=== PATIENT | male | born 1965 | race Caucasian/White ===

== ENCOUNTER → 2016-11-21 | Outpatient (CLI) | payer MEDICARE, MEDICAID, OTHER ==
[~2016-11-21] MED LIST: ASPI81TA85 PO; ATOR1TAB18 PO; CARA1TAB2 PO; CARV12.5 PO; CLOP75TA2 PO; HYDR-3713 PO; ISOS20TA PO; MAGN400T5 PO; NITR4TASL SL; PANTOPRAZOLE PO; TRAM50TA2 PO
[2016-11-21 08:16] LABS: MEAN CORPUSCULAR HGB CONC 33.7 g/dl (32.0-36.5); MEAN CORPUSCULAR VOLUME 92.1 fl (80.0-96.0); RED CELL DISTRIBUTION WIDTH 13.2 % (11.5-14.5); WHITE BLOOD COUNT 7.2 K/mm3 (4.0-10.0)
[2016-11-21 08:20] LABS: ALBUMIN 3.5 GM/DL (3.2-5.2); ALBUMIN/GLOBULIN RATIO 1.35 (1.00-1.93); ALKALINE PHOSPHATASE 58 U/L (45-117); ALT/SGPT 27 U/L (12-78); ANION GAP 5 MEQ/L (8-16); AST/SGOT 16 U/L (15-37); BILIRUBIN,TOTAL 0.7 MG/DL (0.2-1.0); BLOOD UREA NITROGEN 13 MG/DL (7-18); CALCIUM LEVEL 8.6 MG/DL (8.5-10.1); CARBON DIOXIDE LEVEL 30 MEQ/L (21-32); CHLORIDE LEVEL 109 MEQ/L (98-107); CHOLESTEROL LEVEL 159 MG/DL (<200); CREATININE FOR GFR 1.06 MG/DL (0.70-1.30); GLOMERULAR FILTRATION RATE > 60.0 (>56); GLUCOSE, FASTING 104 MG/DL (70-105); MAGNESIUM LEVEL 2.1 MG/DL (1.8-2.4); POTASSIUM SERUM 4.3 MEQ/L (3.5-5.1); SODIUM LEVEL 144 MEQ/L (136-145); TOTAL PROTEIN 6.1 GM/DL (6.4-8.2); TRIGLYCERIDES LEVEL 179 MG/DL (<150)
== END ==
LOC: M LAB 07:30
PROVIDERS: ATTEND Physician Assistant
DX: I25.10 Atherosclerotic heart disease of native coronary artery without angina pectoris (principal); E78.00 Pure hypercholesterolemia, unspecified; I25.5 Ischemic cardiomyopathy

== ENCOUNTER → 2017-01-17 | Outpatient (REF) ==
--- NOTE | 2017-01-17 10:53 | REP ---
PA and lateral chest: Comparisons are the PA and lateral chest is 02/19/[address] of 06/24/2013. There is a stable right upper lobe lung nodule which on CT is a calcified granuloma. There are no infiltrates or effusions. There are no masses. Lung townsend otherwise clear and unchanged. Cardiac size is normal. There is a single lead pacemaker, unchanged. The baryr, mediastinum, and bony thorax are unchanged. On the comparison CT there are scattered bulla, particularly in the upper lobes. Impression: No acute cardiopulmonary findings. There are findings compatible with bullous emphysema. There is a stable calcified granuloma the right upper lobe. There is a pacemaker. Signed by De Gordon MD 01/17/2017 10:44 A
== END ==
LOC: M SMT 09:56
PROVIDERS: ATTEND Internal Medicine
DX: Z02.71 Encounter for disability determination (principal); R91.8 Other nonspecific abnormal finding of lung field; Z95.0 Presence of cardiac pacemaker

== ENCOUNTER → 2017-02-09 | Outpatient (REF) | payer MEDICARE, MEDICAID, OTHER | LOC: M LAB REF 12:51 | PROVIDERS: ATTEND Internal Medicine | DX: Z84.89 Family history of other specified conditions (principal); Z79.899 Other long term (current) drug therapy ==

== ENCOUNTER 2017-07-30 21:22 | Emergency (ER) | payer MEDICARE, OTHER, MEDICAID ==
[~2017-07-30] VITALS: Ht 180.3 cm; Wt 95.5 kg
[2017-07-30 21:22] VITALS: BP 125/79
[~2017-07-30 21:22] MED LIST changes: -ATOR1TAB18 PO; +ATOR80TA59 PO; -CARA1TAB2 PO; +CARA1TAB6 PO
[2017-07-30] MEDS ORDERED: ZANA4TAB PO (21:31)
[2017-07-30] MEDS ORDERED: MONT10TA2 PO (21:31)
[2017-07-30] MEDS ORDERED: ALBUTEROL SULFATE 2.5 MG/0.5 ML INH NEB SOLN NEB ONE (22:15)
[2017-07-31] MEDS ORDERED: VENTAER INH (00:12)
[2017-07-31] MEDS ORDERED: ZITHTAB PO (00:12)
--- NOTE | 2017-07-31 07:42 | REP ---
PA and lateral chest: Comparison is 10/21/2012. There are no acute infiltrates or effusions. There are no masses. There is a stable right upper lobe ground lung nodule, unchanged, compatible with granuloma. The cardiac size is normal. There is a single lead pacemaker, unchanged. The barry, mediastinum, and bony thorax are unchanged. Impression: There are no acute cardiopulmonary findings. No Signed by De Gordon MD 07/31/2017 07:34 A
== END 2017-07-31 00:23 | disposition home or self-care (01) ==
LOC: M ED 21:22
DX: J20.9 Acute bronchitis, unspecified (principal); Z72.0 Tobacco use; I25.2 Old myocardial infarction; I10 Essential (primary) hypertension

== ENCOUNTER 2017-12-22 23:02 | Inpatient (IN) | payer OTHER, MEDICAID, MEDICARE ==
[2017-12-22] MEDS: NS 1,000 ML IV (23:42)
[2017-12-23 00:25] LABS: KETONE, URINE AUTO RFX NEGATIVE (NEGATIVE); LEUKOCYTE ESTERASE UR AUTO RFX NEGATIVE (NEGATIVE); NITRITE, URINE AUTO RFX NEGATIVE (NEGATIVE); RBC, URINE AUTO RFX 1 /HPF (0-3); SPECIFIC GRAVITY UR AUTO RFX 1.003 (1.002-1.035); SQUAM EPITHELIAL CELL UR AURFX 0 /HPF (0-6); WBC, URINE AUTO RFX 1 /HPF (0-3)
[2017-12-23 00:26] LABS: BASO # 0.1 10^3/uL (0.0-0.2); BASO % 0.6 % (0.0-1.0); EOS # 0.3 10^3/uL (0.0-0.50); EOS % 3.3 % (0.0-3.0); HEMATOCRIT 41.2 % (42.0-52.0); HEMOGLOBIN 14.3 g/dl (14.0-18.0); IMMATURE GRANULOCYTE % 0.3 % (0-3.0); LYMPH # 3.2 10^3/uL (1.5-4.5); LYMPH % 33.8 % (24.0-44.0); MEAN CORPUSCULAR HEMOGLOBIN 30.8 pg (27.0-33.0); MEAN CORPUSCULAR HGB CONC 34.7 g/dl (32.0-36.5); MEAN CORPUSCULAR VOLUME 88.6 fl (80.0-96.0); MONO % 9.9 % (0.0-5.0); NEUTROPHILS % 52.1 % (36.0-66.0); PLATELET COUNT, AUTOMATED 217 10^3/uL (150-450); RED BLOOD COUNT 4.65 10^6/uL (4.30-6.10); RED CELL DISTRIBUTION WIDTH 12.7 % (11.5-14.5); WHITE BLOOD COUNT 9.6 10^3/uL (4.0-10.0)
[2017-12-23 00:41] LABS: LACTIC ACID SEPSIS PROTOCOL 1.8 MMOL/L (0.4-2.0)
[2017-12-23 00:44] LABS: ALT/SGPT 34 U/L (12-78); ANION GAP 7 MEQ/L (8-16); AST/SGOT 19 U/L (7-37); BLOOD UREA NITROGEN 14 MG/DL (7-18); CALCIUM LEVEL 8.8 MG/DL (8.5-10.1); CARBON DIOXIDE LEVEL 26 MEQ/L (21-32); CHLORIDE LEVEL 110 MEQ/L (98-107); CPK CREATINE PHOSPHOKINASE 94 U/L (39-308); CREATININE FOR GFR 0.99 MG/DL (0.70-1.30); GLOMERULAR FILTRATION RATE > 60.0 (>56); GLUCOSE, FASTING 100 MG/DL (70-100); POTASSIUM SERUM 3.8 MEQ/L (3.5-5.1); SODIUM LEVEL 143 MEQ/L (136-145)
[2017-12-23 00:45] LABS: ACETAMINOPHEN LEVEL < 2.0 UG/ML (10.0-30.0); ALBUMIN 3.9 GM/DL (3.2-5.2); ALBUMIN/GLOBULIN RATIO 1.34 (1.00-1.93); ALKALINE PHOSPHATASE 50 U/L (45-117); BILIRUBIN,DIRECT 0.2 MG/DL (0.0-0.2); BILIRUBIN,TOTAL 0.7 MG/DL (0.2-1.0); ETHYL ALCOHOL (ETHANOL) < 0.003 % (0.000-0.010); SALICYLATE LEVEL < 1.7 MG/DL (5.0-30.0); TOTAL PROTEIN 6.8 GM/DL (6.4-8.2); TROPONIN I < 0.02 NG/ML (< 0.10)
[2017-12-23 01:01] LABS: CK-MB VALUE MASS 1.3 NG/ML (<3.6); MB/CK RELATIVE INDEX 1.38 (< OR =4)
[2017-12-23 01:40] LABS: AMPHETAMINES LEVEL URINE NEGATIVE (NEGATIVE); BARBITURATES URINE NEGATIVE (NEGATIVE); BENZODIAZEPINES URINE NEGATIVE (NEGATIVE); CANNABINOIDS URINE NEGATIVE (NEGATIVE); COCAINE METABOLITE URINE NEGATIVE (NEGATIVE); METHADONE URINE NEGATIVE (NEGATIVE); OPIATES URINE NEGATIVE (NEGATIVE); PHENCYCLIDINE URINE NEGATIVE (NEGATIVE)
[2017-12-23 02:36] LABS: AMPHETAMINES LEVEL URINE NEGATIVE (NEGATIVE); BARBITURATES URINE NEGATIVE (NEGATIVE); BENZODIAZEPINES URINE NEGATIVE (NEGATIVE); CANNABINOIDS URINE NEGATIVE (NEGATIVE); COCAINE METABOLITE URINE NEGATIVE (NEGATIVE); METHADONE URINE NEGATIVE (NEGATIVE); OPIATES URINE NEGATIVE (NEGATIVE); PHENCYCLIDINE URINE NEGATIVE (NEGATIVE)
[2017-12-23] MEDS ORDERED: ALBUTEROL 90 MCG/ACT 8GM HFA INHALER INH (09:00)
[2017-12-23] MEDS: ENOXAPARIN 40 MG/0.4 ML SYRINGE (J1650) SC (11:03)
[2017-12-23] MEDS: ATORVASTATIN 20 MG TAB PO (11:03)
[2017-12-23] MEDS: ISOSORBIDE MON. (IMDUR) 30 MG XR TAB PO (11:05)
[2017-12-23] MEDS: CLOPIDOGREL 75 MG TAB PO (11:05)
[2017-12-23] MEDS: MAGNESIUM OXIDE 400 MG TAB (MAG-OX) PO (11:05)
[2017-12-23] MEDS: ASPIRIN 81 MG ENTERIC TAB PO (11:05)
[2017-12-23] MEDS: PANTOPRAZOLE 40MG TAB (PROTONIX) PO ×2 (11:07→20:06)
[2017-12-23] MEDS: CARVedilol 12.5 MG TAB PO ×2 (11:07→20:06)
[2017-12-24] MEDS: CLOPIDOGREL 75 MG TAB PO (08:01)
[2017-12-24] MEDS: ATORVASTATIN 20 MG TAB PO (08:01)
[2017-12-24] MEDS: ISOSORBIDE MON. (IMDUR) 30 MG XR TAB PO (08:01)
[2017-12-24] MEDS: ENOXAPARIN 40 MG/0.4 ML SYRINGE (J1650) SC (08:02)
[2017-12-24] MEDS: CARVedilol 12.5 MG TAB PO ×2 (08:02→21:04)
[2017-12-24] MEDS: ASPIRIN 81 MG ENTERIC TAB PO (08:02)
[2017-12-24] MEDS: PANTOPRAZOLE 40MG TAB (PROTONIX) PO ×2 (08:02→21:03)
[2017-12-24] MEDS: MAGNESIUM OXIDE 400 MG TAB (MAG-OX) PO (08:02)
[2017-12-24] MEDS: ACETAMINOPHEN TAB 650MG DOSE (2X325MG) PO (21:03)
[2017-12-25] MEDS: ATORVASTATIN 20 MG TAB PO (07:54)
[2017-12-25] MEDS: CLOPIDOGREL 75 MG TAB PO (07:55)
[2017-12-25] MEDS: MAGNESIUM OXIDE 400 MG TAB (MAG-OX) PO (07:55)
[2017-12-25] MEDS: ASPIRIN 81 MG ENTERIC TAB PO (07:55)
[2017-12-25] MEDS: PANTOPRAZOLE 40MG TAB (PROTONIX) PO (07:55)
[2017-12-25] MEDS: CARVedilol 12.5 MG TAB PO (07:55)
[2017-12-25] MEDS: ISOSORBIDE MON. (IMDUR) 30 MG XR TAB PO (07:55)
[2017-12-25] MEDS: ENOXAPARIN 40 MG/0.4 ML SYRINGE (J1650) SC (07:56)
== END 2017-12-25 14:10 | DRG 204 ==
LOC: M ED 23:02 → M ED INP 23:03 → M ICU 12-23 05:33 → M PCU 12-23 20:57
DX: R55 Syncope and collapse (principal); I25.10 Atherosclerotic heart disease of native coronary artery without angina pectoris; I10 Essential (primary) hypertension; E78.5 Hyperlipidemia, unspecified; G47.33 Obstructive sleep apnea (adult) (pediatric); J44.9 Chronic obstructive pulmonary disease, unspecified; K21.9 Gastro-esophageal reflux disease without esophagitis; F17.210 Nicotine dependence, cigarettes, uncomplicated; Z98.1 Arthrodesis status; Z95.810 Presence of automatic (implantable) cardiac defibrillator; Z95.5 Presence of coronary angioplasty implant and graft; Z79.899 Other long term (current) drug therapy

== ENCOUNTER → 2019-04-20 | Outpatient (CLI) | payer MEDICARE, MEDICAID ==
[~2019-04-20] MED LIST changes: +ISOS30TA4 PO; +MONT10TA2 PO; +PANT40TA3 PO; +VENTAER INH; +ZANA4TAB PO; +ZITHTAB PO
[2019-04-20 17:59] LABS: BASO % 0.6 % (0.0-1.0); EOS # 0.2 10^3/uL (0.0-0.50); EOS % 2.6 % (0.0-3.0); HEMATOCRIT 43.2 % (42.0-52.0); HEMOGLOBIN 14.4 g/dl (13.5-17.5); LYMPH # 2.6 10^3/uL (1.5-4.5); LYMPH % 36.2 % (24.0-44.0); MEAN CORPUSCULAR HEMOGLOBIN 32.1 pg (27.0-33.0); MEAN CORPUSCULAR HGB CONC 33.3 g/dl (32.0-36.5); MEAN CORPUSCULAR VOLUME 96.4 fl (80.0-96.0); MONO # 0.8 10^3/uL (0.0-0.8); MONO % 10.4 % (0.0-5.0); NEUTROPHILS # 3.6 10^3/uL (1.8-7.7); NEUTROPHILS % 50.1 % (36.0-66.0); PLATELET COUNT, AUTOMATED 250 10^3/uL (150-450); RED BLOOD COUNT 4.48 10^6/uL (4.30-6.10); WHITE BLOOD COUNT 7.2 10^3/uL (4.0-10.0)
[2019-04-20 19:38] LABS: ALBUMIN 3.9 GM/DL (3.2-5.2); ALT/SGPT 27 U/L (12-78); BILIRUBIN,TOTAL 0.9 MG/DL (0.2-1.0); BLOOD UREA NITROGEN 19 MG/DL (7-18); CALCIUM LEVEL 8.6 MG/DL (8.5-10.1); CARBON DIOXIDE LEVEL 28 MEQ/L (21-32); CHLORIDE LEVEL 108 MEQ/L (98-107); CREATININE FOR GFR 1.12 MG/DL (0.70-1.30); GLOMERULAR FILTRATION RATE > 60.0 (>56); GLUCOSE, FASTING 89 MG/DL (70-100); POTASSIUM SERUM 4.3 MEQ/L (3.5-5.1); SODIUM LEVEL 142 MEQ/L (136-145); TOTAL PROTEIN 6.8 GM/DL (6.4-8.2)
--- NOTE | 2019-04-21 10:07 | REP ---
ABDOMINAL SERIES: Supine and erect views of the abdomen and pelvis demonstrates no evidence of free intraperitoneal air. I do not see evidence of small bowel obstruction. No significantly dilated small bowel loops are seen. There is a moderate to large amount of fecal material throughout the colon. Inferior aspect of the pelvis is not visualized. No definite abnormal calcifications are seen in the abdomen. There are mild degenerative changes of the spine. An accompanying view of the chest demonstrates a nodule in the right upper lobe peripherally, which is essentially stable compared to a prior chest radiograph 04/05/2016 from [facility]. There is no acute infiltrate in either lung. The heart is normal in size. There is a left single-lead pacemaker again noted. IMPRESSION: Moderate to large amount of fecal material through out the colon. No evidence of small bowel obstruction. No acute infiltrate in either lung. Electronically Signed by De Tee MD 04/21/2019 11:29 P
== END ==
LOC: M WUC 10:48
PROVIDERS: ATTEND Physician Assistant
DX: R10.31 Right lower quadrant pain (principal)

== ENCOUNTER → 2019-04-22 | Outpatient (CLI) | payer MEDICARE, MEDICAID ==
[~2019-04-22] MED LIST changes: +GASTROGRAFIN SOLUTION 30ML (Q9963) As Ordered ONE; +ISOVUE-370 76% 100ML VIAL (Q9967) As Ordered ONE
--- NOTE | 2019-04-22 16:06 | REP ---
CT of the abdomen and pelvis with IV contrast and with bowel contrast: Comparison is 04/09/2009. The visualized lung townsend are unremarkable. The hepatic parenchyma is homogeneous. The gallbladder, pancreas and spleen are normal size and unremarkable. There is a small hiatal hernia. The adrenals, kidneys and abdominal aorta are unremarkable. The bowel and mesentery are unremarkable. Pelvis: The appendix is unremarkable. The terminal ileum is unremarkable. The bladder is unremarkable. There is no adenopathy or ascites. The pelvic bowel loops are unremarkable. There is degenerative disc disease in the lumbar spine L5 S1. Impression: Essentially negative CT study of the abdomen and pelvis. L5 S1 degenerative disc disease is identified. Electronically Signed by De Gordon MD 04/22/2019 03:57 P
== END ==
LOC: M RAD 13:40
PROVIDERS: ATTEND Physician Assistant
DX: K44.9 Diaphragmatic hernia without obstruction or gangrene (principal); M51.36 Other intervertebral disc degeneration, lumbar region; R10.31 Right lower quadrant pain
CPT/HCPCS: 74177; Q9963; Q9967

== ENCOUNTER → 2019-05-31 | Outpatient (CLI) | payer MEDICARE, MEDICAID ==
[~2019-05-31] MED LIST changes: -GASTROGRAFIN SOLUTION 30ML (Q9963) As Ordered ONE; -ISOVUE-370 76% 100ML VIAL (Q9967) As Ordered ONE
[2019-05-31 16:35] LABS: HEMOGLOBIN 13.6 g/dl (13.5-17.5); MEAN CORPUSCULAR HEMOGLOBIN 30.3 pg (27.0-33.0); MEAN CORPUSCULAR HGB CONC 33.2 g/dl (32.0-36.5); MEAN CORPUSCULAR VOLUME 91.3 fl (80.0-96.0); PLATELET COUNT, AUTOMATED 240 10^3/uL (150-450); RED BLOOD COUNT 4.49 10^6/uL (4.30-6.10); WHITE BLOOD COUNT 6.9 10^3/uL (4.0-10.0)
[2019-05-31 16:46] LABS: ALBUMIN 3.4 GM/DL (3.2-5.2); ALT/SGPT 29 U/L (12-78); BILIRUBIN,TOTAL 0.9 MG/DL (0.2-1.0); BLOOD UREA NITROGEN 12 MG/DL (7-18); CALCIUM LEVEL 8.4 MG/DL (8.5-10.1); CARBON DIOXIDE LEVEL 26 MEQ/L (21-32); CHLORIDE LEVEL 110 MEQ/L (98-107); CHOLESTEROL LEVEL 134 MG/DL (<200); CHOLESTEROL RISK RATIO 3.435 (<5); CREATININE FOR GFR 0.94 MG/DL (0.70-1.30); GLOMERULAR FILTRATION RATE > 60.0 (>56); GLUCOSE, FASTING 114 MG/DL (70-100); HDL CHOLESTEROL 39 MG/DL (>40); LDL CHOLESTEROL 76 MG/DL (<100); MAGNESIUM LEVEL 1.8 MG/DL (1.8-2.4); NON-HDL-C 95 MG/DL; SODIUM LEVEL 141 MEQ/L (136-145); TOTAL PROTEIN 5.9 GM/DL (6.4-8.2); TRIGLYCERIDES LEVEL 95 MG/DL (<150)
== END ==
LOC: M WUC 10:27
PROVIDERS: ATTEND Physician Assistant
DX: I25.10 Atherosclerotic heart disease of native coronary artery without angina pectoris (principal); E78.00 Pure hypercholesterolemia, unspecified; I25.5 Ischemic cardiomyopathy

== ENCOUNTER → 2019-10-07 | Outpatient (CLI) | payer MEDICARE, MEDICAID ==
--- NOTE | 2019-10-07 13:11 | REP ---
Left shoulder: Three views. History: Pain. Findings: The left glenohumeral and acromioclavicular joints are normally aligned. A transvenous pacemaker is noted in place on the left. There is mild AC joint hypertrophy and spur formation. Periarticular soft tissues are unremarkable. Impression: Mild AC joint osteoarthritic spurring. Pacemaker. Otherwise negative. Electronically Signed by Chaitanya Sow MD 10/07/2019 01:25 P
== END ==
LOC: M WUC 11:19
PROVIDERS: ATTEND Internal Medicine
DX: M19.012 Primary osteoarthritis, left shoulder (principal); M25.512 Pain in left shoulder; Z95.0 Presence of cardiac pacemaker

== ENCOUNTER 2019-10-28 11:31 | Emergency (ER) | payer MEDICARE, MEDICAID ==
[~2019-10-28] VITALS: Ht 180.3 cm; Wt 96.2 kg
[2019-10-28 11:32] VITALS: BP 134/80
== END 2019-10-28 13:25 | disposition left against medical advice (07) ==
LOC: M ED 11:31
DX: Z53.21 Procedure and treatment not carried out due to patient leaving prior to being seen by health care provider (principal)

== ENCOUNTER → 2019-12-04 | Outpatient (CLI) | payer MEDICARE, MEDICAID, OTHER ==
[~2019-12-04] MED LIST changes: -MONT10TA2 PO; +MONT10TA4 PO
--- NOTE | 2019-12-09 13:20 | SLEEPCENT ---
DATE OF STUDY: 12/04/2019 ORDERING PROVIDER: CECI Meadows Nocturnal polysomnography was performed for evaluation of sleep physiology in this patient with a history of obstructive sleep apnea syndrome in the past who is experiencing excessive daytime somnolence and nonrestorative sleep. 8 hours and 6 minutes of data were reviewed. There were 449 minutes of sleep identified. Sleep latency was mildly prolonged at 15.5 minutes. Rapid eye movement (REM) latency was normal at 57 minutes. Sleep architecture was good with five REM cycles. Overall sleep efficiency was 93%. The patient's electrocardiogram showed a sinus rhythm with an average heart rate of 62 beats per minute. Electroencephalogram (EEG) showed normal waveforms for awake and sleep. There were 130 respiratory events identified of 10 seconds in duration or greater for an apnea-hypopnea index of 17.4. The events were obstructive, not exclusive to sleep stage nor body posture. Arousals from respiratory events occurred 16.4 times per hour, and oxygen desaturations were seen into the low 80s. Remaining measures of sleep physiology were normal. IMPRESSION: Obstructive sleep apnea syndrome (G47.33). Apnea-hypopnea index 17.4. RECOMMENDATION: The patient should be encouraged to return to the sleep disorder center for pressure therapy. In the interim, alcohol and sedative avoidance should be practiced and caution exercised during the operation of motor vehicles.
== END ==
LOC: M SLEEP 19:37
PROVIDERS: ATTEND Nurse Practitioner Adult Health
DX: G47.33 Obstructive sleep apnea (adult) (pediatric) (principal)

== ENCOUNTER → 2019-12-22 | Outpatient (CLI) | payer MEDICARE, MEDICAID, OTHER ==
--- NOTE | 2019-12-24 22:22 | SLEEPCENT ---
DATE OF PROCEDURE: 12/22/2019 Ordered by: CECI Meadows Nocturnal polysomnography was performed for the titration of pressure therapy in this patient with obstructive sleep apnea syndrome. Apnea-hypopnea index 17.4. For testing, the patient was fit with a [employer] full-face mask of medium size, 4 cm of water pressure were applied to the circuit and the lights were extinguished. 7 hours and 51 minutes of data were reviewed. There were 281 minutes of sleep identified. Sleep latency was prolonged at 32.5 minutes. REM latency was short at 38.5 minutes. Sleep architecture improved with pressure therapy. Overall sleep efficiency was 60.5%. The patient's electrocardiogram showed small complexes in a sinus rhythm with occasional PVCs. Average heart rate 75 beats per minute. EEG showed normal waveforms for awake and sleep. Respiratory events were well palliated with C-PAP at a pressure of +10. IMPRESSION Obstructive sleep apnea syndrome (G47.33) RECOMMENDATIONS Nightly use of pressure therapy 10 cm of water.
== END ==
LOC: M SLEEP 20:00
PROVIDERS: ATTEND Nurse Practitioner Adult Health
DX: G47.33 Obstructive sleep apnea (adult) (pediatric) (principal)

== ENCOUNTER → 2021-01-22 | Outpatient (CLI) | payer MEDICARE, MEDICAID ==
[~2021-01-22] MED LIST changes: -ASPI81TA85 PO; +ASPI81TA86 PO; +ISOS1TAB35 PO; -ISOS30TA4 PO; +MONT10TA10 PO; -MONT10TA4 PO; +PANT40TA29 PO; -PANT40TA3 PO
--- NOTE | 2021-01-22 15:45 | REP ---
INDICATION: OCCLUSION/STENOSIS COMPARISON: 12/23/2017 TECHNIQUE: Tee scale and color Doppler evaluation using linear high frequency transducer Findings: FINDINGS: Two-dimensional tee scale and color images demonstrate normal arterial lumen with laminar flow and no appreciable narrowing. Bilateral age-related intimal thickening noted. Color Doppler interrogation demonstrates normal arterial wave patterns and velocities with no significant spectral broadening. Normal flow direction is appreciated in the bilateral vertebral arteries. ICA peak systolic velocity: Right 54.4 cm/s; Left 55.8 cm/s ICA diastolic velocity: Right 28.8 cm/s; Left 27.3 cm/s ECA peak systolic velocity: Right 60.0 cm/s; Left 78.6 cm/s CCA peak systolic velocity: Right 98.3 cm/s; Left 76.9 cm/s ICA/CCA ratio: Right 0.55 cm/s; Left 0.73 cm/s IMPRESSION: No hemodynamically significant areas of narrowing or stenosis appreciated. Based on set standards narrowing falls within the less than 50% range. <Electronically signed by Brent Carlson > 01/22/21 [id number]
== END ==
LOC: M RAD 14:26
PROVIDERS: ATTEND Physician Assistant
DX: I65.23 Occlusion and stenosis of bilateral carotid arteries (principal)

== ENCOUNTER → 2021-03-27 | Outpatient (CLI) | payer MEDICARE, MEDICAID ==
--- NOTE | 2021-03-27 17:05 | REP ---
INDICATION: PAIN IN RIGHT FOOT COMPARISON: None. TECHNIQUE: AP, lateral, bilateral oblique views right foot. FINDINGS: The osseous structures and joint spaces are intact and normal. There is no evidence for acute fracture or dislocation. Surrounding soft tissues are unremarkable. No subcutaneous emphysema or radiodense foreign body. IMPRESSION: Age-appropriate right foot radiographs. No acute fracture or dislocation. <Electronically signed by Brent Carlson > 03/27/21 [id number]
== END ==
LOC: M RAD 16:31
PROVIDERS: ATTEND Physician Assistant
DX: M79.671 Pain in right foot (principal)

== ENCOUNTER 2021-04-02 14:17 | Emergency (ER) | payer MEDICARE, MEDICAID ==
[~2021-04-02] VITALS: Ht 180.3 cm; Wt 97.7 kg
[2021-04-02] MEDS ORDERED: FARX1TAB3 (14:35)
[2021-04-02] MEDS ORDERED: EZET10TA21 (14:35)
[2021-04-02] MEDS ORDERED: ENTR1TAB4 (14:35)
[2021-04-02] MEDS ORDERED: ACETAMINOPHEN 500 MG TAB PO ONE (15:25)
[2021-04-02 15:44] VITALS: BP 96/70
== END 2021-04-02 15:47 | disposition home or self-care (01) ==
LOC: M ED 14:17
DX: M72.2 Plantar fascial fibromatosis (principal); I10 Essential (primary) hypertension; E11.9 Type 2 diabetes mellitus without complications; I25.2 Old myocardial infarction; E78.5 Hyperlipidemia, unspecified; K21.9 Gastro-esophageal reflux disease without esophagitis; M81.0 Age-related osteoporosis without current pathological fracture; Z95.0 Presence of cardiac pacemaker; Z95.5 Presence of coronary angioplasty implant and graft; Z79.899 Other long term (current) drug therapy; Z79.82 Long term (current) use of aspirin; F17.210 Nicotine dependence, cigarettes, uncomplicated

== ENCOUNTER → 2021-05-07 | Outpatient (CLI) | payer MEDICARE, MEDICAID ==
[~2021-05-07] MED LIST changes: +ENTR1TAB4; +EZET10TA21; +FARX1TAB3
[2021-05-07 10:02] LABS: HEMATOCRIT 42.3 % (42.0-52.0); HEMOGLOBIN 13.9 g/dl (13.5-17.5)
[2021-05-07 10:31] LABS: BLOOD UREA NITROGEN 15 MG/DL (7-18); CALCIUM LEVEL 8.8 MG/DL (8.5-10.1); CARBON DIOXIDE LEVEL 28 MEQ/L (21-32); CHLORIDE LEVEL 110 MEQ/L (98-107); GLOMERULAR FILTRATION RATE > 60.0 (>56); GLUCOSE, FASTING 103 MG/DL (70-100); POTASSIUM SERUM 4.4 MEQ/L (3.5-5.1); SODIUM LEVEL 140 MEQ/L (136-145)
== END ==
LOC: M LAB 09:03
PROVIDERS: ATTEND Orthopaedic Surgery
DX: Z01.812 Encounter for preprocedural laboratory examination (principal); I25.5 Ischemic cardiomyopathy; Z79.899 Other long term (current) drug therapy; Z79.82 Long term (current) use of aspirin

== ENCOUNTER → 2021-05-07 | Outpatient (CLI) | payer MEDICARE, MEDICAID ==
[~2021-05-07] MED LIST changes: -MONT10TA10 PO; +MONT10TA97 PO
[2021-05-07 10:29] LABS: BLOOD UREA NITROGEN 15 MG/DL (7-18); CALCIUM LEVEL 8.6 MG/DL (8.5-10.1); CARBON DIOXIDE LEVEL 28 MEQ/L (21-32); CHLORIDE LEVEL 111 MEQ/L (98-107); GLOMERULAR FILTRATION RATE > 60.0 (>56); GLUCOSE, FASTING 96 MG/DL (70-100); POTASSIUM SERUM 4.5 MEQ/L (3.5-5.1); SODIUM LEVEL 141 MEQ/L (136-145)
== END ==
LOC: M LAB 08:59
PROVIDERS: ATTEND Physician Assistant
DX: I25.5 Ischemic cardiomyopathy (principal)

== ENCOUNTER → 2021-07-28 | Outpatient (CLI) | payer MEDICARE, MEDICAID ==
[~2021-07-28] MED LIST changes: +MONT10TA10 PO; -MONT10TA97 PO
== END ==
LOC: M LABSMTC 11:12
PROVIDERS: ATTEND Pediatrics
DX: Z20.822 Contact with and (suspected) exposure to COVID-19 (principal)
CPT/HCPCS: C9803; U0003

== ENCOUNTER 2021-08-02 09:35 | Outpatient (CLI) | payer MEDICARE, MEDICAID ==
[~2021-08-02] VITALS: Ht 180.3 cm; Wt 96.0 kg
[~2021-08-02 09:35] MED LIST changes: +ALBUTEROL 90 MCG/ACT 8GM HFA INHALER INH PRN; +ALBUTEROL SULFATE 2.5 MG/0.5 ML INH NEB SOLN INH PRN; +EPINEPHrine INJ 1 MG/ML 1ML AMP IM PRN; +NS 1,000 ML IV SCH; +diphenhydrAMINE 50MG/ML VIAL (J1200) IV PRN; +methylPREDNISolone 125MG 2ML VIAL IV PRN
[2021-08-02] MEDS ORDERED: ACETAMINOPHEN TAB 650MG DOSE (2X325MG) PO ONE (09:55)
[2021-08-02] MEDS ORDERED: diphenhydrAMINE 25MG CAP PO ONE (09:55)
[2021-08-02] MEDS ORDERED: BAMLANIVIMAB 700 MG, ETESEVIMAB 1,400 MG in NS 250 ML IV ONE (09:55)
[2021-08-02 11:03] VITALS: BP 99/60
[2021-08-02 11:33] VITALS: BP 102/61
[2021-08-02 12:03] VITALS: BP 96/62
[2021-08-02 13:03] VITALS: BP 98/62
== END 2021-08-02 13:03 | disposition home or self-care (01) ==
LOC: M OPCLI4PR 09:35
PROVIDERS: ATTEND Internal Medicine
DX: U07.1 COVID-19 (principal)

== ENCOUNTER → 2021-08-09 | Outpatient (REF) ==
[~2021-08-09] MED LIST changes: -ALBUTEROL 90 MCG/ACT 8GM HFA INHALER INH PRN; -ALBUTEROL SULFATE 2.5 MG/0.5 ML INH NEB SOLN INH PRN; -EPINEPHrine INJ 1 MG/ML 1ML AMP IM PRN; -NS 1,000 ML IV SCH; -diphenhydrAMINE 50MG/ML VIAL (J1200) IV PRN; -methylPREDNISolone 125MG 2ML VIAL IV PRN
--- NOTE | 2021-08-09 14:08 | REP ---
INDICATION: SOB. COMPARISON: Multiple the latest 04/09/2019 TECHNIQUE: PA and lateral FINDINGS: The cardiomediastinal silhouette is unchanged. The heart is not enlarged. AICD stable. The lung townsend are stable. No acute patchy parenchymal opacities or pleural effusions have developed. There is a well-known benign nodule in the right upper lobe status quo. There is no change in the osseous structures. IMPRESSION: There is no acute cardiopulmonary disease. <Electronically signed by Humble Hughes > 08/09/21 3024
== END ==
LOC: M PLAIMG 10:49
PROVIDERS: ATTEND Internal Medicine
DX: R06.02 Shortness of breath (principal)

== ENCOUNTER → 2022-04-08 | Outpatient (REF) | payer MEDICARE, MEDICAID ==
[~2022-04-08] MED LIST changes: -MONT10TA10 PO; +MONT10TA97 PO
[2022-04-08 16:40] LABS: CREATININE FOR GFR 1.37 MG/DL (0.70-1.30); GLOMERULAR FILTRATION RATE 56.6 (>56); POTASSIUM SERUM 3.9 MEQ/L (3.5-5.1)
== END ==
LOC: M LABWUC 15:36
PROVIDERS: ATTEND Physician Assistant
DX: I25.5 Ischemic cardiomyopathy (principal)

== ENCOUNTER → 2022-05-10 | Outpatient (CLI) | payer MEDICARE, MEDICAID | LOC: M RAD 15:55 → M LAB 15:55 | PROVIDERS: ATTEND Internal Medicine | DX: M54.50 Low back pain, unspecified (principal) ==

== ENCOUNTER 2022-06-30 16:41 | Emergency (ER) | payer MEDICARE, MEDICAID ==
[~2022-06-30] VITALS: Ht 180.3 cm; Wt 88.6 kg
[2022-06-30 17:12] LABS: BASO # 0.1 10^3/uL (0.0-0.2); BASO % 0.5 % (0.0-1.0); EOS # 0.5 10^3/uL (0.0-0.5); EOS % 4.8 % (0.0-3.0); HEMATOCRIT 38.4 % (42.0-52.0); HEMOGLOBIN 13.2 g/dl (13.5-17.5); LYMPH # 3.2 10^3/uL (1.5-5.0); LYMPH % 32.1 % (24.0-44.0); MEAN CORPUSCULAR HGB CONC 34.4 g/dl (32.0-36.5); MONO # 0.8 10^3/uL (0.0-0.8); NEUTROPHILS # 5.4 10^3/uL (1.5-8.5); NEUTROPHILS % 54.1 % (36.0-66.0); PLATELET COUNT, AUTOMATED 267 10^3/uL (150-450); RED BLOOD COUNT 4.13 10^6/uL (4.30-6.10); WHITE BLOOD COUNT 9.9 10^3/uL (4.0-10.0)
[2022-06-30 17:28] LABS: INR 0.94
[2022-06-30 17:29] LABS: PARTIAL THROMBOPLASTIN TIME 32.6 SECONDS (25.9-37.0)
[2022-06-30 18:07] LABS: MB/CK RELATIVE INDEX 1.12 (< OR =4)
[2022-06-30 18:12] LABS: ALBUMIN 3.8 GM/DL (3.2-5.2); BILIRUBIN,DIRECT 0.2 MG/DL (0.0-0.2); BILIRUBIN,TOTAL 0.7 MG/DL (0.2-1.0); CALCIUM LEVEL 9.1 MG/DL (8.5-10.1); CREATININE FOR GFR 1.36 MG/DL (0.70-1.30); FREE T4 1.08 NG/DL (0.76-1.46); GLOMERULAR FILTRATION RATE 57.1 (>56); POTASSIUM SERUM 3.6 MEQ/L (3.5-5.1); THYROID STIMULATING HORMONE 0.927 uIU/ML (0.358-3.740); TOTAL PROTEIN 6.6 GM/DL (6.4-8.2)
[2022-06-30] MEDS ORDERED: PRED20TA PO (18:44)
[2022-06-30] MEDS ORDERED: methylPREDNISolone 125MG 2ML VIAL IV ONE (18:45)
[2022-06-30 18:57] LABS: CK-MB VALUE MASS 1.1 NG/ML (<3.6); MB/CK RELATIVE INDEX 1.41 (< OR =4)
[2022-06-30 19:52] VITALS: BP 125/79
== END 2022-06-30 19:54 | disposition home or self-care (01) ==
LOC: M ED 16:41
DX: R07.89 Other chest pain (principal); E11.9 Type 2 diabetes mellitus without complications; I25.2 Old myocardial infarction; K21.9 Gastro-esophageal reflux disease without esophagitis
CPT/HCPCS: 71045; 80048; 80076; 82550; 82553; 83690; 83880; 84439; 84443; 84484; 85025; 85610; 85730; 87486; 87581; 87633; 87798; 93005; 93041; 94760; 96374; 99284; J2930

== ENCOUNTER → 2022-10-27 | Outpatient (REF) | payer MEDICARE, MEDICAID ==
[~2022-10-27] MED LIST changes: -ISOS20TA PO; +ISOS20TA53 PO; +METH-1164 PO; +PRED20TA PO
[2022-10-29 20:51] LABS: ANTINUCLEAR ANTIBODIES DIRECT Negative (Negative); CYCLIC CITRULLINATED PEPTIDE 1 units (0-19)
== END ==
LOC: M LAB REF 16:19
PROVIDERS: ATTEND Internal Medicine
DX: M25.50 Pain in unspecified joint (principal)

== ENCOUNTER → 2022-10-27 | Outpatient (CLI) | payer MEDICARE, MEDICAID | LOC: M WUC 15:06 | PROVIDERS: ATTEND Internal Medicine | DX: R91.1 Solitary pulmonary nodule (principal); Z95.0 Presence of cardiac pacemaker ==

== ENCOUNTER 2022-12-02 16:14 | Emergency (ER) | payer MEDICARE, MEDICAID ==
[~2022-12-02] VITALS: Ht 180.3 cm; Wt 97.3 kg
[~2022-12-02 16:14] MED LIST changes: -METH-1164 PO
[2022-12-02 18:50] LABS: BASO # 0.1 10^3/uL (0.0-0.2); BASO % 0.7 % (0.0-1.0); EOS # 0.3 10^3/uL (0.0-0.5); EOS % 3.3 % (0.0-3.0); HEMOGLOBIN 14.1 g/dl (13.5-17.5); LYMPH # 3.1 10^3/uL (1.5-5.0); LYMPH % 36.8 % (24.0-44.0); MEAN CORPUSCULAR HEMOGLOBIN 31.3 pg (27.0-33.0); MEAN CORPUSCULAR HGB CONC 33.6 g/dl (32.0-36.5); MEAN CORPUSCULAR VOLUME 93.1 fl (80.0-96.0); NEUTROPHILS # 3.9 10^3/uL (1.5-8.5); NEUTROPHILS % 46.8 % (36.0-66.0); PLATELET COUNT, AUTOMATED 223 10^3/uL (150-450); RED BLOOD COUNT 4.51 10^6/uL (4.30-6.10); WHITE BLOOD COUNT 8.3 10^3/uL (4.0-10.0)
[2022-12-02 18:55] LABS: AMPHETAMINES LEVEL URINE NEGATIVE (NEGATIVE); BARBITURATES URINE NEGATIVE (NEGATIVE); BENZODIAZEPINES URINE NEGATIVE (NEGATIVE); CANNABINOIDS URINE NEGATIVE (NEGATIVE); COCAINE METABOLITE URINE NEGATIVE (NEGATIVE); PHENCYCLIDINE URINE NEGATIVE (NEGATIVE)
[2022-12-02 18:56] LABS: METHADONE URINE NEGATIVE (NEGATIVE); OPIATES URINE NEGATIVE (NEGATIVE)
[2022-12-02 18:58] LABS: ETHYL ALCOHOL (ETHANOL) < 0.003 % (0.000-0.010)
[2022-12-02 18:59] LABS: BLOOD UREA NITROGEN 17 MG/DL (9-23); CALCIUM LEVEL 8.7 MG/DL (8.5-10.1); CARBON DIOXIDE LEVEL 27 MMOL/L (20-31); CHLORIDE LEVEL 106 MMOL/L (98-107); CK-MB VALUE MASS 1.6 NG/ML (<3.6); CREATININE FOR GFR 1.17 MG/DL (0.70-1.30); GLOMERULAR FILTRATION RATE > 60.0 (>56); GLUCOSE, FASTING 75 MG/DL (60-100); MAGNESIUM LEVEL 1.8 MG/DL (1.8-2.4); POTASSIUM SERUM 4.2 MMOL/L (3.5-5.1); SODIUM LEVEL 139 MMOL/L (136-145)
[2022-12-02 19:01] LABS: FREE T4 1.06 NG/DL (0.89-1.76)
[2022-12-02 19:02] LABS: THYROID STIMULATING HORMONE 1.464 uIU/ML (0.55-4.78)
[2022-12-02 19:04] LABS: CPK CREATINE PHOSPHOKINASE 91 U/L (46-171); MB/CK RELATIVE INDEX 1.75 (< OR =4)
[2022-12-02 19:04] LABS: RSV AMPLIFICATION NEGATIVE (NEGATIVE)
[2022-12-02 19:08] VITALS: BP 116/72
[2022-12-02] MEDS ORDERED: METHOCARBAMOL 1,000 MG/10 ML VIAL IV ONE (20:20)
[2022-12-02] MEDS ORDERED: KETOROLAC 30 MG/ML 1ML VIAL IV ONE (20:20)
[2022-12-02 21:27] LABS: BACTERIA, URINE AUTO NEGATIVE (NEGATIVE); RBC, URINE AUTO 0 /HPF (0-3); SQUAMOUS EPITHELIAL CELL UR AU 0 /HPF (0-6); WBC, URINE AUTO 0 /HPF (0-3)
[2022-12-02 21:28] LABS: APPEARANCE, URINE CLEAR (CLEAR)
[2022-12-02 21:29] LABS: COLOR, URINE YELLOW (YELLOW)
[2022-12-02 21:30] LABS: BILIRUBIN, URINE AUTO NEGATIVE (NEGATIVE); BLOOD, URINE BLOOD NEGATIVE (NEGATIVE); GLUCOSE, URINE (UA) AUTO 3+ mg/dL (NEGATIVE); KETONE, URINE AUTO NEGATIVE (NEGATIVE); LEUKOCYTE ESTERASE, URINE AUTO NEGATIVE (NEGATIVE); NITRITE, URINE AUTO NEGATIVE (NEGATIVE); PROTEIN, URINE AUTO NEGATIVE (NEGATIVE); UROBILINOGEN, URINE AUTO 0.2 mg/dL (0.0-2.0)
[2022-12-02] MEDS ORDERED: NORCO 5/325MG TABLET (HOME DOSE PACK) PO ONE (21:45)
[2022-12-02] MEDS ORDERED: METH-1164 PO (21:48)
== END 2022-12-02 22:06 | disposition home or self-care (01) ==
LOC: M ED 16:14
DX: I95.1 Orthostatic hypotension (principal); M54.9 Dorsalgia, unspecified; E11.9 Type 2 diabetes mellitus without complications; I10 Essential (primary) hypertension; I25.2 Old myocardial infarction; K21.9 Gastro-esophageal reflux disease without esophagitis; A69.20 Lyme disease, unspecified; Z95.5 Presence of coronary angioplasty implant and graft; F17.200 Nicotine dependence, unspecified, uncomplicated; Z79.82 Long term (current) use of aspirin; Z79.899 Other long term (current) drug therapy
CPT/HCPCS: 70450; 71045; 72110; 80048; 80307; 81001; 82077; 82550; 82553; 83735; 83880; 84439; 84443; 84484; 85025; 87631; 93005; 93041; 94760; 96374; 96375; 99285; J1885; J2800

== ENCOUNTER → 2023-02-28 | Outpatient (CLI) | payer MEDICARE, MEDICAID ==
[~2023-02-28] MED LIST changes: +METH-1164 PO
== END ==
LOC: M RAD 14:50
PROVIDERS: ATTEND Nurse Practitioner Adult Health
DX: Z12.2 Encounter for screening for malignant neoplasm of respiratory organs (principal); F17.218 Nicotine dependence, cigarettes, with other nicotine-induced disorders; J84.10 Pulmonary fibrosis, unspecified

== ENCOUNTER → 2024-01-15 | Outpatient (CLI) | payer MEDICARE, MEDICAID | LOC: M RAD 11:12 | PROVIDERS: ATTEND Physician Assistant | DX: I65.23 Occlusion and stenosis of bilateral carotid arteries (principal) ==

== ENCOUNTER → 2024-04-15 | Outpatient (CLI) | payer OTHER, MEDICAID | LOC: M RAD 14:33 | PROVIDERS: ATTEND Nurse Practitioner Adult Health | DX: Z12.2 Encounter for screening for malignant neoplasm of respiratory organs (principal); F17.218 Nicotine dependence, cigarettes, with other nicotine-induced disorders ==

== ENCOUNTER → 2024-07-18 | Outpatient (REF) | payer OTHER, MEDICAID | LOC: M LAB REF 11:58 | PROVIDERS: ATTEND Internal Medicine | DX: R53.83 Other fatigue (principal); Z11.59 Encounter for screening for other viral diseases ==

== ENCOUNTER → 2024-10-23 | Outpatient (CLI) | payer OTHER, MEDICAID ==
[~2024-10-23] MED LIST changes: -ISOS20TA53 PO; +ISOS20TA72 PO
== END ==
LOC: M RAD 13:51
PROVIDERS: ATTEND Nurse Practitioner Adult Health
DX: R91.8 Other nonspecific abnormal finding of lung field (principal); J44.9 Chronic obstructive pulmonary disease, unspecified; J43.9 Emphysema, unspecified; J47.9 Bronchiectasis, uncomplicated; I25.10 Atherosclerotic heart disease of native coronary artery without angina pectoris; Z95.0 Presence of cardiac pacemaker; R59.0 Localized enlarged lymph nodes

== ENCOUNTER → 2025-08-18 | Outpatient (REF) | payer MEDICARE, MEDICAID ==
[~2025-08-18] MED LIST changes: +ACET-683 PO; +ALBU10.7 INH; +ASPI81CH49 PO; +BENA25CA4 PO; +BENZ-18 PO; +ELIQ5TAB PO; +ENOX100I3 SC; +ENTR1TAB7 PO; +EPIN0.3I11 INJ; -EZET10TA21; +EZET10TA57 PO; +FARX1TAB3 PO; +FURO20TA2 PO; +GUAI400T41 PO; +GUAIDM5UD PO; +METO1TAB33 PO; +SPIR-10 PO
== END ==
LOC: M LAB REF 16:48
PROVIDERS: ATTEND Internal Medicine
DX: R05.9 Cough, unspecified (principal)

== ENCOUNTER → 2025-08-19 | Outpatient (CLI) | payer MEDICARE, MEDICAID | LOC: M WUC 11:16 | PROVIDERS: ATTEND Internal Medicine | DX: R05.9 Cough, unspecified (principal); R09.89 Other specified symptoms and signs involving the circulatory and respiratory systems; R91.1 Solitary pulmonary nodule; R06.02 Shortness of breath; J44.9 Chronic obstructive pulmonary disease, unspecified ==

== ENCOUNTER 2025-08-23 18:51 | Inpatient (IN) | payer MEDICARE, MEDICAID ==
[~2025-08-23] VITALS: Ht 180.3 cm; Wt 97.7 kg
[~2025-08-23 18:51] MED LIST changes: -ACET-683 PO; -ALBU10.7 INH; -ASPI81CH49 PO; -BENA25CA4 PO; -BENZ-18 PO; -ELIQ5TAB PO; -ENOX100I3 SC; -ENTR1TAB7 PO; -EPIN0.3I11 INJ; -FARX1TAB3 PO; -FURO20TA2 PO; -GUAI400T41 PO; -GUAIDM5UD PO; -METO1TAB33 PO; -SPIR-10 PO
[2025-08-23 19:22] LABS: BASO # 0.1 10^3/uL (0.0-0.2); BASO % 0.5 % (0.0-1.0); EOS # 0.3 10^3/uL (0.0-0.5); EOS % 3.3 % (0.0-3.0); LYMPH # 2.6 10^3/uL (1.5-5.0); LYMPH % 26.8 % (24.0-44.0); MONO # 1.0 10^3/uL (0.0-0.8); MONO % 10.6 % (2.0-8.0); NEUTROPHILS # 5.6 10^3/uL (1.5-8.5); NEUTROPHILS % 58.4 % (36.0-66.0); PLATELET COUNT, AUTOMATED 265 10^3/uL (150-450)
[2025-08-23 19:53] LABS: ALT/SGPT 30.0 U/L (7.0-40); AST/SGOT 21.0 U/L (<34); CALCIUM LEVEL 9.1 MG/DL (8.3-10.6); CARBON DIOXIDE LEVEL 26.0 MMOL/L (20-31); CHLORIDE LEVEL 108.0 MMOL/L (98-107); CREATININE FOR GFR 1.56 MG/DL (0.70-1.30); GLOMERULAR FILTRATION RATE 49.9 (>49); POTASSIUM SERUM 3.6 MMOL/L (3.5-5.1); SODIUM LEVEL 142.0 MMOL/L (136-145)
[2025-08-23 22:42] LABS: INR 0.85
[2025-08-23] MEDS ORDERED: ISOVUE-370 76% 100 ML VIAL As Ordered ONE (22:48)
[2025-08-23] MEDS ORDERED: ACETAMINOPHEN 325 MG TAB PO PRN (23:50)
[2025-08-24] MEDS ORDERED: ALBUTEROL 90 MCG/ACT 8 GM HFA INHALER INH PRN (01:20)
[2025-08-24 01:39] LABS: C REACTIVE PROTEIN QUANTITATIV 1.82 MG/DL (<1.0)
[2025-08-24] MEDS: COMBIVENT RESPIMAT 100-20 MCG INHALER 4 GM INH SCH (02:00)
[2025-08-24 02:30] VITALS: BP 137/66; TEMP 97.7; O2SAT 94
[2025-08-24] MEDS: ENOXAPARIN 100 MG/1 ML SYRINGE (J1650 PER 10MG) SC SCH (02:35)
[2025-08-24] MEDS ORDERED: ALBU10.7 INH (02:45)
[2025-08-24] MEDS ORDERED: PANT40TA29 PO (02:45)
[2025-08-24] MEDS ORDERED: METO1TAB33 PO (02:45)
[2025-08-24] MEDS ORDERED: FURO20TA2 PO (02:45)
[2025-08-24] MEDS ORDERED: GUAI400T41 PO (02:45)
[2025-08-24] MEDS ORDERED: ENTR1TAB7 PO (02:45)
[2025-08-24] MEDS ORDERED: BENZ-18 PO (02:45)
[2025-08-24] MEDS ORDERED: SPIR-10 PO (02:45)
[2025-08-24] MEDS ORDERED: ASPI81CH49 PO (02:45)
[2025-08-24] MEDS ORDERED: EPIN0.3I11 INJ (02:47)
[2025-08-24] MEDS ORDERED: ACET-683 PO (02:50)
[2025-08-24] MEDS ORDERED: BENA25CA4 PO (02:50)
[2025-08-24] MEDS ORDERED: HOME MED LIST COMPLETE! XX SCH (03:00)
[2025-08-24] MEDS ORDERED: FARX1TAB3 PO (03:52)
[2025-08-24 05:00] VITALS: BP 109/73; TEMP 97.9; O2SAT 91
[2025-08-24 05:51] LABS: BASO # 0.1 10^3/uL (0.0-0.2); BASO % 0.5 % (0.0-1.0); EOS # 0.3 10^3/uL (0.0-0.5); EOS % 3.4 % (0.0-3.0); LYMPH # 3.1 10^3/uL (1.5-5.0); LYMPH % 33.8 % (24.0-44.0); MONO # 1.1 10^3/uL (0.0-0.8); MONO % 12.2 % (2.0-8.0); NEUTROPHILS # 4.6 10^3/uL (1.5-8.5); NEUTROPHILS % 49.7 % (36.0-66.0); PLATELET COUNT, AUTOMATED 244 10^3/uL (150-450)
[2025-08-24 06:23] LABS: CALCIUM LEVEL 8.5 MG/DL (8.3-10.6); CARBON DIOXIDE LEVEL 24.0 MMOL/L (20-31); CHLORIDE LEVEL 110.0 MMOL/L (98-107); CREATININE FOR GFR 1.26 MG/DL (0.70-1.30); GLOMERULAR FILTRATION RATE 64.5 (>49); POTASSIUM SERUM 3.8 MMOL/L (3.5-5.1); SODIUM LEVEL 140.0 MMOL/L (136-145)
[2025-08-24] MEDS ORDERED: BENZONATATE 100 MG CAPSULE PO PRN (07:55)
[2025-08-24 08:00] VITALS: BP 101/52; TEMP 98.5; O2SAT 94
[2025-08-24] MEDS: MIRALAX *UNIT DOSE* 17 GM PACKET PO SCH (08:51)
[2025-08-24] MEDS: SPIRONOLACTONE 25 MG TAB PO SCH (08:51)
[2025-08-24] MEDS: FUROSEMIDE 20 MG TAB PO SCH (08:52)
[2025-08-24] MEDS: METOPROLOL SUCC. 50 MG *XL* TAB PO SCH (08:52)
[2025-08-24] MEDS: guaiFENesin/CODEINE SYRUP 5 ML UDC PO PRN (08:57)
[2025-08-24] MEDS ORDERED: METOPROLOL TART 25 MG TABLET PO SCH (09:00)
[2025-08-24] MEDS: SENNOSIDES/DOCUSATE SODIUM 8.6 MG/50MG TAB PO SCH (09:00)
[2025-08-24 12:00] VITALS: BP 112/68; TEMP 98.7; O2SAT 95
[2025-08-24 16:00] VITALS: BP 133/75; TEMP 99.3; O2SAT 93
[2025-08-24 20:00] VITALS: BP 109/62; TEMP 97.9; O2SAT 96
[2025-08-24] MEDS: EZETIMIBE 10 MG TABLET PO SCH (20:23)
[2025-08-25] VITALS: BP 103/61; TEMP 98; O2SAT 94
[2025-08-25 04:00] VITALS: BP 109/74; TEMP 98.4; O2SAT 93
[2025-08-25 05:19] LABS: BASO # 0.1 10^3/uL (0.0-0.2); BASO % 0.8 % (0.0-1.0); EOS # 0.3 10^3/uL (0.0-0.5); EOS % 4.0 % (0.0-3.0); LYMPH # 2.9 10^3/uL (1.5-5.0); LYMPH % 37.8 % (24.0-44.0); MONO # 0.8 10^3/uL (0.0-0.8); MONO % 10.8 % (2.0-8.0); NEUTROPHILS # 3.5 10^3/uL (1.5-8.5); NEUTROPHILS % 46.1 % (36.0-66.0); PLATELET COUNT, AUTOMATED 262 10^3/uL (150-450)
[2025-08-25 05:43] LABS: CALCIUM LEVEL 8.4 MG/DL (8.3-10.6); CARBON DIOXIDE LEVEL 22.0 MMOL/L (20-31); CHLORIDE LEVEL 110.0 MMOL/L (98-107); CREATININE FOR GFR 1.19 MG/DL (0.70-1.30); GLOMERULAR FILTRATION RATE 69.1 (>49); POTASSIUM SERUM 4.0 MMOL/L (3.5-5.1); SODIUM LEVEL 141.0 MMOL/L (136-145)
[2025-08-25 08:19] VITALS: BP 110/74; TEMP 98.2; O2SAT 94
[2025-08-25] MEDS ORDERED: ENOX100I3 SC (09:09)
[2025-08-25] MEDS ORDERED: GUAIDM5UD PO (09:09)
[2025-08-25 09:20] VITALS: BP 110/74
[2025-08-25] MEDS ORDERED: ELIQ5TAB PO (10:24)
[2025-08-27 13:52] LABS: PROTEIN C ANTIGEN 86 % normal (70-140)
[2025-08-27 14:44] LABS: PROTEIN S ANTIGEN FREE 92 % normal (57-171); PROTEIN S ANTIGEN TOTAL 99 % normal (70-140)
[2025-08-28 18:02] LABS: FACTOR V LEIDEN FOR MEDINET NEGATIVE
[2025-08-30 23:32] LABS: ANTI THROMBIN 3 ANTIGEN IMMUNO 99 % normal (80-120); ANTI THROMBIN 3 FUNCT ACTIVITY 103 % normal (80-135)
[2025-09-02 14:12] LABS: HOMOCYST(E)INE SERUM 36.9 umol/L (< or = 15.2)
== END 2025-08-25 11:54 | disposition home or self-care (01) | DRG 176 ==
LOC: M ED 18:51 → M ED INP 23:50 → M ICU 08-24 02:15
PROVIDERS: ADMIT Internal Medicine Nephrology; ATTEND Internal Medicine Nephrology
PROC: B246ZZZ Ultrasonography of Right and Left Heart (ICD-10-PCS; principal; 2025-08-24)
DX: I26.99 Other pulmonary embolism without acute cor pulmonale (principal); I82.431 Acute embolism and thrombosis of right popliteal vein; I82.411 Acute embolism and thrombosis of right femoral vein; I50.42 Chronic combined systolic (congestive) and diastolic (congestive) heart failure; D68.52 Prothrombin gene mutation; K59.00 Constipation, unspecified; K40.20 Bilateral inguinal hernia, without obstruction or gangrene, not specified as recurrent; I25.2 Old myocardial infarction; I25.10 Atherosclerotic heart disease of native coronary artery without angina pectoris; J44.9 Chronic obstructive pulmonary disease, unspecified; K57.30 Diverticulosis of large intestine without perforation or abscess without bleeding; G47.33 Obstructive sleep apnea (adult) (pediatric); F10.21 Alcohol dependence, in remission; R05.3 Chronic cough; F17.210 Nicotine dependence, cigarettes, uncomplicated; I11.0 Hypertensive heart disease with heart failure; E78.5 Hyperlipidemia, unspecified; G89.29 Other chronic pain; M54.9 Dorsalgia, unspecified; K21.9 Gastro-esophageal reflux disease without esophagitis; Z98.1 Arthrodesis status; Z95.5 Presence of coronary angioplasty implant and graft; Z95.810 Presence of automatic (implantable) cardiac defibrillator; Z79.82 Long term (current) use of aspirin; Z79.52 Long term (current) use of systemic steroids; Z79.899 Other long term (current) drug therapy

== ENCOUNTER → 2025-09-17 | Outpatient (POV) | payer MEDICARE, MEDICAID ==
[~2025-09-17] MED LIST changes: +ACET-683 PO; +ALBU10.7 INH; +ASPI81CH49 PO; +BENA25CA4 PO; +BENZ-18 PO; +ELIQ5TAB PO; +ENOX100I3 SC; +ENTR1TAB7 PO; +EPIN0.3I11 INJ; +FARX1TAB3 PO; +FURO20TA2 PO; +GUAI400T41 PO; +GUAIDM5UD PO; +METO1TAB33 PO; +SPIR-10 PO
== END ==
LOC: M IRPOV 10:45
PROVIDERS: ATTEND Registered Nurse School
DX: I82.491 Acute embolism and thrombosis of other specified deep vein of right lower extremity (principal); I26.99 Other pulmonary embolism without acute cor pulmonale; F17.210 Nicotine dependence, cigarettes, uncomplicated; Z79.01 Long term (current) use of anticoagulants; Z79.82 Long term (current) use of aspirin; Z79.899 Other long term (current) drug therapy; Z82.49 Family history of ischemic heart disease and other diseases of the circulatory system; Z80.9 Family history of malignant neoplasm, unspecified; Z91.030 Bee allergy status